=== PATIENT | female | born 1955 | race Caucasian/White ===

== ENCOUNTER 2018-09-17 08:58 | Emergency (ER) | payer OTHER ==
[2018-09-17 09:35] VITALS: TEMP 98.2; BMI 26.5
--- NOTE | 2018-09-17 09:58 | PDOC ---
History of Present Illness - General Chief Complaint: Weakness Stated Complaint: WEAKNESS Time Seen by Provider: 09/17/18 09:57 History Source: Patient Exam Limitations: No Limitations - History of Present Illness Initial Comments: 09/17/18 12:38 Ms. Vaughn is a 63 yo F with a hx of hypothyroidism, HTN, DM, and HLD who presents to the ED after an episode of generalized weakness followed by burning substernal chest pain while in the ED. Per the patient, she felt a sudden onset of generalized weakness (denies localization, dizziness, lightheadedness) at approximately 7:00 am. She denies LOC or head trauma. The weakness improved, but she began having a substernal pain in the department that was constant, burning like sensation, without radiation, with nausea and endorses having palpitations. She endorses feeling "very anxious". She denies having a hx of [place]. Denies the following: fever, chills, recent visual changes, vomiting, SOB, abdominal pain, dysuria, hematuria, hematochezia, melena, and leg pain/swelling. Pmhx: Refer to above Shx: None Meds: Atenolol, furosemide, lipitor Allergies: None Social hx: Endorses tobacco use. Denies alcohol and substance abuse. 09/17/18 13:00 Past History - Past Medical History Allergies/Adverse Reactions: Allergies Allergy/AdvReac Type Severity Reaction Status Date / Time No Known Allergies Allergy Verified 09/17/18 09:29 Home Medications: Ambulatory Orders Alprazolam [Xanax] 0.25 mg PO Q6H PRN #5 tablet 03/01/14 Furosemide [Lasix -] 40 mg PO BID 09/17/18 Levothyroxine [Synthroid -] 100 mcg PO DAILY 09/17/18 Diabetes: Yes HTN: Yes Hypercholesterolemia: Yes Thyroid Disease: Yes (hypothroid) - Suicide/Smoking/Psychosocial Hx Smoking History: Current every day smoker Information on smoking cessation initiated: No Review of Systems - Review of Systems Able to Perform ROS?: Yes Is the patient limited Mauritian proficient: No Constitutional: Yes: Weakness. No: Chills, Diaphoresis, Fever HEENTM: No: Eye Pain, Ear Discharge, Nose Pain, Throat Pain, Throat Swelling Respiratory: No: Shortness of Breath Cardiac (ROS): Yes: Palpitations. No: Chest Pain, Irregular Heart Rate, Lightheadedness, Syncope ABD/GI: Yes: Nausea. No: Constipated, Diarrhea, Rectal Bleeding, Vomiting : No: Dysuria, Hematuria Musculoskeletal: No: Back Pain Integumentary: No: Rash Neurological: No: Headache, Numbness, Paresthesia, Ataxia, Dizziness Psychiatric: Yes: Anxiety. No: Stressors Endocrine: No: Unexplained Weight Gain Hematologic/Lymphatic: No: Anemia *Physical Exam - Vital Signs Last Vital Signs Temp Pulse Resp BP Pulse Ox 98.2 F 121 H 20 182/96 H 98 09/17/18 09:34 09/17/18 09:34 09/17/18 09:34 09/17/18 09:34 09/17/18 09:34 - Physical Exam General Appearance: Yes: Nourished, Appropriately Dressed. No: Apparent Distress HEENT: positive: EOMI, [place] Neck: positive: Trachea midline. negative: Lymphadenopathy (R), Lymphadenopathy (L) Respiratory/Chest: positive: Lungs Clear, Normal Breath Sounds. negative: Chest Tender, Respiratory Distress, Accessory Muscle Use Cardiovascular: positive: Regular Rhythm, S1, S2, Tachycardia. negative: Systolic Murmur Gastrointestinal/Abdominal: positive: Normal Bowel Sounds, Flat, Soft. negative : Tender, Pulsatile Mass Lymphatic: negative: Adenopathy Musculoskeletal: positive: Normal Inspection. 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 negative: Facial Droop, Sensory Deficit, Confused Heart Score/ECG Review - History History: Moderately suspicious - Electrocardiogram EKG: Normal - Age Age: 45-65 - Risk Factors Risk Factors Heart Score: Yes Hx Hypercholesterolemia, Yes Hx Hypertension, Yes Hx Diabetes, Yes Smoking History Based on the list above the patient has:: >/=3 risk factors or Hx atherosclerotic disease - Troponin Troponin: </= normal limit - Score Heart Score - Total: 4 - ECG Intrepretation Comment:: ventricular rate is 108 bpm, UT is 168 ms, QRS is 70 ms, and QTc is 458 ms. She is in sinus tachycardia without ST elevations or depressions noted. ED Treatment Course - LABORATORY CBC & Chemistry Diagram: 09/17/18 10:37 09/17/18 10:37 Medical Decision Making - Medical Decision Making Ms. Vaughn is a 63 yo F with a hx of hypothyroidism, HTN, DM, and HLD who presents to the ED after an episode of generalized weakness followed by burning substernal chest pain while in the ED. Initial vitals: Initial Vital Signs Temp Pulse Resp BP Pulse Ox 98.2 F 121 H 20 182/96 H 98 09/17/18 09:34 09/17/18 09:34 09/17/18 09:34 09/17/18 09:34 09/17/18 09:34 Work up: Laboratory Results - last 24 hr 09/17/18 09/17/18 09/17/18 10:37 10:37 10:37 WBC 13.0 H RBC 5.02 Hgb 16.7 H Hct 45.9 H MCV 91.4 MCH 33.3 MCHC 36.4 H RDW 12.4 Plt Count 354 MPV 8.6 Absolute Neuts (auto) 10.9 H Neutrophils % 84.3 H D Lymphocytes % 9.6 D Monocytes % 5.2 Eosinophils % 0.4 D Basophils % 0.5 Nucleated RBC % 0 Sodium 131 L Potassium 3.6 Chloride 95 L Carbon Dioxide 23 Anion Gap 13 BUN 14 Creatinine 0.6 Creat Clearance w eGFR > 60 Random Glucose 169 H Calcium 9.0 Total Bilirubin 0.5 AST 20 ALT 42 Alkaline Phosphatase 155 H Troponin I < 0.02 Total Protein 7.8 Albumin 4.2 TSH 2.31 09/17/18 13:10 WBC RBC Hgb Hct MCV MCH MCHC RDW Plt Count MPV Absolute Neuts (auto) Neutrophils % Lymphocytes % Monocytes % Eosinophils % Basophils % Nucleated RBC % Sodium Potassium Chloride Carbon Dioxide Anion Gap BUN Creatinine Creat Clearance w eGFR Random Glucose Calcium Total Bilirubin AST ALT Alkaline Phosphatase Troponin I < 0.02 Total Protein Albumin TSH Her first troponin was negative. We repeated a second troponin at the 3 hr radha. She has significant risk factors (HLD, HTN, DM) and is an active smoker at the age of 63. Her weakness complaint is an atypical presentation of chest pain. Given her reassessment where she denied having chest pain and the two negative troponins, she can be discharged with close follow up with her PMD. This is due to that she has a baseline HEART score of 4 and has no active chest pain or symptoms with her weakness resolving and her troponins and EKG within normal limits. She agreed to this plan and accepted it. Dispo: DC *DC/Admit/Observation/Transfer Diagnosis at time of Disposition: Weakness - Discharge Dispostion Disposition: HOME Condition at time of disposition: Good Decision to Admit order: No - Referrals Referrals: Laurie Lund MD [Primary Care Provider] - - Patient Instructions Additional Instructions: You were seen in the emergency department for the evaluation of your weakness and subsequent development of chest pain. Your EKG was within normal limits and your troponin, which is measured to assess cardiac health, was within normal limits twice. Please follow up with your primary medical doctor within 24-36 hours for follow up care. Please return to the emergency department if you have worsening symptoms or develop new concerning symptoms such as fever/chills, shortness of breath with chest pain, and the pain moving to the arms, back, or neck. Thank you. - Post Discharge Activity
--- NOTE | 2018-09-17 10:10 | PDOC ---
Attending Attestation - HPI HPI: 09/17/18 10:34 The patient is a 63 year old female with a past medical history of hypothyroidism, diabetes, hypertension, dyslipidemia, and tobacco use who presents to the emergency department for evaluation of weakness starting at 6 in the morning. Patient reports associated symptoms of nausea without vomiting. She reports chest burning with palpitations this morning while in her apartment at rest. Denies shortness of breath and diaphoresis, headache, and dizziness. - Physicial Exam PE: Vitals: Triage Vital signs reviewed General Appearance: no acute distress, well nourished well developed, Head: Atraumatic, normocephalic Neck: Supple Chest Wall: Nontender Cardiac: Regular rate and rhythm, no murmurs, no rubs, no gallops, Lungs: Clear to auscultation bilateral, good air movement bilaterally, Abdomen: Soft, nondistended, nontender to palpation Extremities: Full range of motion to all extremities, no cyanosis, clubbing, or edema Skin: Warm and dry, no rashes or lesions, no petechiae Psych: normal mood, normal affect. - Medical Decision Making The patient is a 63 year old female with a past medical history of hypothyroidism, diabetes, hypertension, dyslipidemia, and tobacco use who presents to the emergency department for evaluation of weakness starting at 6 in the morning. Plan: EKG IV Fluids Labs <Enoc Washington - Last Filed: 09/17/18 12:30> - Resident Resident Name: Ramin Berg - ED Attending Attestation I have performed the following: I have examined & evaluated the patient, The case was reviewed & discussed with the resident, I agree w/resident's findings & plan, Exceptions are as noted - Medical Decision Making 63 years old hyperthyroidism diabetes hypertension dyslipidemia tobacco use presents with atypical chest discomfort and sensation of weakness while driving generalized nonfocal Upon arrival to the emergency department patient very anxious. Recent Kavin her father has been very sick Patient with one similar episode to this several years in the past At this time patient with no chest pain We'll check labs EKG chest x-ray observe and reassess Reevaluation patient feels much better requesting something for anxiety her EKG was nonischemic her troponin was negative given that her symptomatology started just prior to arrival we'll check a second troponin. Reevaluation troponin negative 2 heart score 3 patient feels much better she' ll follow-up with her doctor this week ambulate comfortably around the emergency department Very slight tachycardia still noticed much improved from arrival at this time given her workup I believe this to be secondary to her underlying anxiety she has no PE or DVT risk factors she is low risk Findings, need for follow-up and strict return instructions discussed with patient. <Jaime Curtis - Last Filed: 09/17/18 16:10> Heart Score/ECG Review - History History: Slightly suspicious - Electrocardiogram EKG: Normal - Age Age: 45-65 - Risk Factors Risk Factors Heart Score: Yes Hx Hypercholesterolemia, Yes Hx Hypertension, Yes Smoking History Based on the list above the patient has:: >/=3 risk factors or Hx atherosclerotic disease - Troponin Troponin: </= normal limit - Score Heart Score - Total: 3 - ECG Impressions Comment:: 09/17/18 16:09 EKG performed at 1059 demonstrates sinus tachycardia at 108. No ST elevations or T-wave inversions. Interpreted by me. <Jaime Curtis - Last Filed: 09/17/18 16:10> Attestations - Attestations Documentation prepared by Enoc Washington, acting as medical officer psychiatry for Jaime Curtis MD. <Enoc Washington - Last Filed: 09/17/18 12:30>
[2018-09-17] MEDS ORDERED: SODIUM CHLORIDE 0.9% 1000 ML INFUS.BAG IV ONE (10:22)
[2018-09-17] MEDS ORDERED: METOCLOPRAMIDE HCL INJECTION 10 MG/2 ML VIAL IVPB ONE (10:27)
[2018-09-17] MEDS ORDERED: METOCLOPRAMIDE HCL INJECTION 10 MG/2 ML VIAL ONE (10:42)
[2018-09-17 10:59] LABS: BASO % 0.5 % (0-2.0); EOS % 0.4 % (0-4.5); HEMATOCRIT 45.9 % (32.4-45.2); HEMOGLOBIN 16.7 GM/dL (10.7-15.3); LYMPH % 9.6 % (8-40); MCH 33.3 pg (25.7-33.7); MCHC 36.4 g/dl (32.0-36.0); MEAN CELL VOLUME 91.4 fl (80-96); MEAN PLT VOLUME 8.6 fl (7.5-11.1); MONO % 5.2 % (3.8-10.2); NEUT % 84.3 % (42.8-82.8); PLATELET COUNT 354 K/MM3 (134-434); RBC 5.02 M/mm3 (3.60-5.2); RDW 12.4 % (11.6-15.6)
[2018-09-17 11:11] LABS: ALBUMIN 4.2 g/dl (3.4-5.0); ALK PHOS 155 U/L (45-117); ANION GAP 13 MMOL/L (8-16); BILIRUBIN,TOTAL 0.5 mg/dL (0.2-1); BLOOD UREA NITROGEN 14 mg/dL (7-18); CHLORIDE 95 mmol/L (98-107); CO2 23 mmol/L (21-32); CREATININE 0.6 mg/dL (0.55-1.3); GLUCOSE,RANDOM 169 mg/dL (74-106); POTASSIUM 3.6 mmol/L (3.5-5.1); SGOT/AST 20 U/L (15-37); SGPT/ALT 42 U/L (13-61); SODIUM 131 mmol/L (136-145); TOT PROT 7.8 g/dl (6.4-8.2)
[2018-09-17] MEDS ORDERED: LORazepam 2 MG/ML SDV VIAL ONE (11:42)
[2018-09-17 11:57] VITALS: BP 151/84; PULSE 97
--- NOTE | 2018-09-17 11:57 | EKG ---
Test Reason : Blood Pressure : / mmHG Vent. Rate : 108 BPM Atrial Rate : 108 BPM P-R Int : 168 ms QRS Dur : 070 ms QT Int : 342 ms P-R-T Axes : 050 041 040 degrees QTc Int : 458 ms SINUS TACHYCARDIA POSSIBLE LEFT ATRIAL ENLARGEMENT BORDERLINE ECG WHEN COMPARED WITH ECG OF 01-MAR-2014 01:09, NO SIGNIFICANT CHANGE WAS FOUND Confirmed by CLAY CONTEH MD ([id number]) on 09/17/2018 11:57:00 AM Referred By: Confirmed By:CLAY CONTEH MD
== END 2018-09-17 15:00 | disposition home or self-care (01) ==
LOC: JER 08:58
PROC: 3E033GC Introduction of Other Therapeutic Substance into Peripheral Vein, Percutaneous Approach (ICD-10-PCS; principal; 2018-09-17)
PROC: 3E033NZ Introduction of Analgesics, Hypnotics, Sedatives into Peripheral Vein, Percutaneous Approach (ICD-10-PCS; 2018-09-17)
PROC: 3E033GC Introduction of Other Therapeutic Substance into Peripheral Vein, Percutaneous Approach (ICD-10-PCS; 2018-09-17)
DX: R53.1 Weakness (principal); I10 Essential (primary) hypertension; E78.00 Pure hypercholesterolemia, unspecified; E11.9 Type 2 diabetes mellitus without complications; E03.9 Hypothyroidism, unspecified; F17.210 Nicotine dependence, cigarettes, uncomplicated
CPT/HCPCS: 36415; 71045-TC-FY; 80053; 84443; 84484; 85025; 93005; 93010; 99282-25; J7030

== ENCOUNTER → 2024-02-28 | Day surgery (SDC) | payer OTHER | END | disposition home or self-care (01) | LOC: JRADUS-SUR 11:47 → JRADIR 11:47 | PROVIDERS: ATTEND Family Medicine | PROC: 0H9T3ZX Drainage of Right Breast, Percutaneous Approach, Diagnostic (ICD-10-PCS; principal; 2024-02-28) | DX: N63.10 Unspecified lump in the right breast, unspecified quadrant (principal); C50.911 Malignant neoplasm of unspecified site of right female breast | CPT/HCPCS: 19083; 77065-TC; 87899; 88305-TC; 88341-TC; 88342-TC; A4648 ==